=== PATIENT | female | born 1965 | race Caucasian/White ===

== ENCOUNTER 2016-10-20 18:55 | Emergency (ER) | payer BC ==
[~2016-10-20] VITALS: Ht 165.1 cm; Wt 65.8 kg
[2016-10-20 19:52] VITALS: BP 141/65
--- NOTE | 2016-10-20 19:55 | PHYS DOC ---
Adult General Chief Complaint Chief Complaint: HAND PROBLEM HPI HPI Patient is a 51 year old female with complaint of left ring finger pain and swelling secondary to attempting to grab her teenage son when she injured her finger. Patient denies any previous injuries to her left ring finger. She denies any history of bone forming disorders. Eyes additional injuries or concerns at this time. Review of Systems Review of Systems Constitutional: Denies fever or chills [] Eyes: Denies change in visual acuity, redness, or eye pain [] HENT: Denies nasal congestion or sore throat [] Respiratory: Denies cough or shortness of breath [] Cardiovascular: No additional information not addressed in HPI [] GI: Denies abdominal pain, nausea, vomiting, bloody stools or diarrhea [] : Denies dysuria or hematuria [] Musculoskeletal: Denies back pain or joint pain [] Integument: Denies rash or skin lesions [] Neurologic: Denies headache, focal weakness or sensory changes [] Endocrine: Denies polyuria or polydipsia [] Allergies Allergies Allergies Coded Allergies Type Severity Reaction Last Updated Verified No Known Drug Allergies 10/20/16 No Physical Exam Physical Exam Constitutional: Well developed, well nourished, mild distress, non-toxic appearance. HENT: Normocephalic, atraumatic, bilateral external ears normal, oropharynx moist, no oral exudates, nose normal. [] Eyes: PERRLA, EOMI, conjunctiva normal, no discharge. [] Neck: Normal range of motion, no tenderness, supple, no stridor. [] Cardiovascular:Heart rate regular rhythm, no murmur [] Lungs & Thorax: Bilateral breath sounds clear to auscultation [] Abdomen: Bowel sounds normal, soft, no tenderness, no masses, no pulsatile masses. [] Skin: Warm, dry, no erythema, no rash. [] Back: No tenderness, no CVA tenderness. [] Extremities: Left ring finger with a moderate amount swelling to the middle phalanx. There is tenderness directly to the middle phalanx. The proximal and distal phalanx normal in appearance and nontender palpation. Flexor and extensor function are preserved, however, patient complains of increased pain with this. Fingers neurovascularly intact with capillary refill less than 2 seconds. Neurologic: Alert and oriented X 3, normal motor function, normal sensory function, no focal deficits noted. [] Psychologic: Affect normal, judgement normal, mood normal. [] Current Patient Data Vital Signs Vital Signs Date Time Temp Pulse Resp B/P Pulse Ox O2 Delivery O2 Flow Rate FiO2 10/20/16 19:52 97.9 66 18 98 Room Air 97.9 EKG EKG [] Radiology/Procedures Radiology/Procedures Views of patient's left ring finger shows a longitudinal, oblique fracture that is minimally displaced. Course & Med Decision Making Course & Med Decision Making Patient was placed in aluminum foam splint with a slight flexion position. Patient states that she has a GI intolerance to narcotic-based pain medications is not requesting anything here. Dragon Disclaimer Dragon Disclaimer This electronic medical record was generated, in whole or in part, using a voice recognition dictation system. Departure Departure Impression: Primary Impression: Finger fracture, left Disposition: 01 HOME, SELF-CARE Condition: GOOD Referrals: ROSAS EARL MD (PCP) MAXIMO PICHARDO MD Patient Instructions: Finger Fracture, [id number] Additional Instructions: 1. Keep your finger in a splint until you see the orthopedic doctor. 2. Take ibuprofen every 8 hours with food or milk. Apply ice every 2 hours for 20-30 minutes at a time. 3. Review the discharge instructions provided for self-care and reasons to return to the emergency department. 4. Contact the orthopedic doctors number listed in the paperwork tomorrow morning to schedule follow-up appointment. Problem Qualifiers Primary Impression: Finger fracture, left Encounter type: initial encounter Fracture type: closed Qualified Code: S62.609A - Fracture of unspecified phalanx of unspecified finger, initial encounter for closed fracture ALAYNA HORTON Oct 20, 2016 19:55
--- NOTE | 2016-10-21 08:53 | RAD ---
3 view left fourth finger radiographs 10/20/2016 Clinical history: Injury to the left fourth finger with swelling. A PA digital radiograph of the left hand was obtained. Oblique and lateral digital radiographs of the left fourth finger were obtained. An acute comminuted oblique fracture of the mid/distal diaphysis/distal metaphysis of the middle phalanx of the left fourth finger is seen. Minimal volar and radial angulation of the major distal fracture fragment is seen. No definite extension into the distal interphalangeal joint is noted. No additional fracture is seen. Impression: Acute oblique comminuted fracture of the middle phalanx of the left fourth finger as outlined above.
== END 2016-10-20 20:23 | disposition home or self-care (01) ==
LOC: ER 18:55
DX: S62.635A Displaced fracture of distal phalanx of left ring finger, initial encounter for closed fracture (principal); X58.XXXA Exposure to other specified factors, initial encounter; Y93.89 Activity, other specified; Y92.89 Other specified places as the place of occurrence of the external cause; Y99.8 Other external cause status
CPT/HCPCS: 29130; 73140; 99284-25